=== PATIENT | female | born 1985 | race Caucasian/White ===

== ENCOUNTER 2020-03-10 05:18 | Emergency (ER) | payer MEDICAID ==
[2020-03-10] MEDS ORDERED: IBUPROFEN600 M1 ORAL (05:40)
== END 2020-03-10 07:00 | disposition home or self-care (01) ==
DX: S93.402A Sprain of unspecified ligament of left ankle, initial encounter (principal); W19.XXXA Unspecified fall, initial encounter; Y92.9 Unspecified place or not applicable
CPT/HCPCS: 73610; Z7502